=== PATIENT | male | born 1975 ===

== ENCOUNTER 2020-10-30 15:02 | Outpatient (CLI) | payer BC, SELFPAY ==
--- NOTE | 2020-10-30 14:45 | DI.RAD_ITS ---
CLINICAL HISTORY: F/U FX TECHNIQUE: 2D digital imaging was performed. COMPARISON: CR Shoulder Left - [id number] from 10/19/2020 FINDINGS: BONES: There does not appear to be any significant change in the comminuted mildly displaced fracture involving the greater tuberosity of the left humerus. There also is a comminuted mildly displaced f racture involving the glenoid. No new fracture is seen. No bony destructive lesion is seen. JOINTS: No dislocation present. SOFT TISSUE: Normal. IMPRESSION: Stable fractures involving the glenoid and the humeral head as described. DATA REPOSITORY: RADIATION DOSE DELIVERED:
== END 2020-10-30 15:03 | disposition home or self-care (01) ==
LOC: DIORS 15:03
PROVIDERS: PCP Family Medicine; Visit Provider Student in an Organized Health Care Education/Training Program
DX: S42.142A Displaced fracture of glenoid cavity of scapula, left shoulder, initial encounter for closed fracture (principal); S42.252A Displaced fracture of greater tuberosity of left humerus, initial encounter for closed fracture
CPT/HCPCS: 73030

== ENCOUNTER 2020-11-01 01:45 | Outpatient (CLI) | payer BC, SELFPAY ==
--- NOTE | 2020-11-01 09:00 | DI.CT_ITS ---
EXAM: CT UPPER EXTREMITY LT WO CLINICAL HISTORY: Intra-artic fx/ glenoid fx with fx/ prox hum fx,SKIING INJURY, PAIN,S42.253 TECHNIQUE: Imaging Protocol: Axial computed tomography images with coronal and sagittal reformatted images were created and reviewed. COMPARISON: CR XR SHOULDER LT COMPLETE 2+V from 10/30/2020 FINDINGS: There are multiple comminuted fragments fractured from the anteroinferior aspect of the glenoid. Mul tiple comminuted fracture fragments are seen at the lateral aspect of the humeral head. A defect is seen in the anterior humeral head. There are few tiny comminuted fragment seen within the joint spac e. There is a nondisplaced fracture of the coracoid process. The clavicle, AC joint and visualized wrap left ribs appear intact. The visualized portions of the left lung appear clear. No pneumothora x is seen. The humeral head appears normally positioned relative to the glenoid. IMPRESSION: Comminuted fracture of the anterior inferior glenoid. Comminuted fracture of the anterolateral humer al head with multiple . A few tiny intra-articular bony fragments are seen. Nondisplaced fracture o f the tip of the coracoid process. RADIATION DOSE DELIVERED: 939.26mGy.cm Total DLP DATA REPOSITORY: All CT scans at this facility are submitted to the National Radiology Data Registry (NRDR) Dose Index Registry (DIR) with the [employer] ([employer]). RADIATION OPTIMIZATION: All CT scans at this facility use at least one of these dose optimization te chniques: automated exposure control; mA and/or kV adjustment per patient size (includes targeted exa ms where dose is matched to clinical indication); or iterative reconstruction.
== END 2020-11-01 02:05 ==
PROVIDERS: PCP Family Medicine; Visit Provider Student in an Organized Health Care Education/Training Program
DX: S42.142A Displaced fracture of glenoid cavity of scapula, left shoulder, initial encounter for closed fracture (principal); S42.135A Nondisplaced fracture of coracoid process, left shoulder, initial encounter for closed fracture; S42.352A Displaced comminuted fracture of shaft of humerus, left arm, initial encounter for closed fracture
CPT/HCPCS: 73200